=== PATIENT | male | born 1945 | race Caucasian/White ===

== ENCOUNTER → 2016-12-14 | Outpatient (CLI) | payer OTHER, MEDICARE ==
[~2016-12-14] MED LIST: AMLO10TA2 PO; ASPI-621 PO; ATOR80TA75 PO; CARB1TAB48 PO; CARV3.122 PO; CLOP75TA PO; FISH1CAP PO; FURO-92 PO; FURO20TA3 PO; HYDR-3144 PO; ISOS10TA2 PO; LOSA100T6 PO; LOVA40TA2 PO; METF10002 PO; PARO20TA4 PO; POTA10TA11 PO; POTA20TA14 PO; SPIR25TA PO
== END | disposition home or self-care (01) ==
LOC: CFH 11:36
PROVIDERS: ATTEND Internal Medicine Critical Care Medicine
DX: J90 Pleural effusion, not elsewhere classified (principal); I51.7 Cardiomegaly; I25.10 Atherosclerotic heart disease of native coronary artery without angina pectoris
CPT/HCPCS: 71250

== ENCOUNTER → 2017-09-19 | Outpatient (CLI) | payer OTHER ==
[~2017-09-19] MED LIST changes: +ATOR-2 PO; -ATOR80TA75 PO; -HYDR-3144 PO; +HYDR-3245 PO
== END ==
LOC: CVU 12:16
PROVIDERS: ATTEND Internal Medicine Cardiovascular Disease
DX: I35.0 Nonrheumatic aortic (valve) stenosis (principal); I27.20 Pulmonary hypertension, unspecified; I42.9 Cardiomyopathy, unspecified; I50.9 Heart failure, unspecified; I07.1 Rheumatic tricuspid insufficiency
CPT/HCPCS: C8929

== ENCOUNTER 2017-12-10 06:13 | Inpatient (IN) | payer OTHER ==
[~2017-12-10] VITALS: Ht 182.9 cm; Wt 85.6 kg
[~2017-12-10 06:13] MED LIST changes: +ACID1TAB7 PO; +CARB1TAB25 PO; +CARV3.1212 PO; +FURO40TA6 PO; +GABA-826 PO; +GABA300C10 PO; +HEPA50002 SQ; +ISOS20TA58 PO; +METF500T PO; +METO10TA6 PO; +POTA20PA25 PO
[2017-12-10] MEDS ORDERED: SODIUM CHLORIDE 0.9% 1,000 ML IV ONE (06:34)
[2017-12-10 06:37] VITALS: BP 130/81
[2017-12-10] MEDS ORDERED: FENTANYL PF 250 MCG/5ML ONE (06:55)
[2017-12-10] MEDS ORDERED: CHLORHEXIDINE 15 ML BOTTLE MM PRN (07:00)
[2017-12-10] MEDS ORDERED: ONDANSETRON 2MG/ML, 2ML IVPush PRN (07:00)
[2017-12-10] MEDS ORDERED: METF-688 PO (07:01)
[2017-12-10 07:14] LABS: BASOPHILS # (AUTO) 0.03 x10^3/uL (0-0.1); BASOPHILS % (AUTO) 0 % (0-1); EOSINOPHILS # (AUTO) 0.09 x10^3/uL (0-0.4); EOSINOPHILS % (AUTO) 1 % (1-7); LYMPHOCYTES # (AUTO) 0.64 x10^3/uL (1-3.4); LYMPHOCYTES % (AUTO) 8 % (22-44); MD NO; MEAN CORPUSCULAR HEMOGLOBIN 31.9 pg (27.5-34.5); MEAN CORPUSCULAR HGB CONC 33.4 g/dL (33.2-36.2); MEAN CORPUSCULAR VOLUME 95.4 fL (81-97); MEAN PLATELET VOLUME 7.2 fL (7.4-10.4); MONOCYTES # (AUTO) 0.74 x10^3/uL (0.2-0.8); MONOCYTES % (AUTO) 9 % (2-9); NEUTROPHILS # (AUTO) 6.79 x10^3/uL (1.8-6.8); NEUTROPHILS % (AUTO) 82 % (42-75); PLATELET COUNT 333 x10^3/uL (130-400); RED BLOOD COUNT 3.45 x10^6/uL (4.38-5.82); RED CELL DISTRIBUTION WIDTH 21.6 % (9.4-14.8)
[2017-12-10 07:25] LABS: ALANINE AMINOTRANSFERASE 10 U/L (12-78); ANION GAP 5 mmol/L (5-15); CALCIUM 8.6 mg/dL (8.5-10.1); CHLORIDE 111 mmol/L (98-107); CREATININE 1.01 mg/dL (0.7-1.3)
[2017-12-10 07:30] LABS: ALKALINE PHOSPHATASE 104 U/L (45-117); BILIRUBIN,TOTAL 0.7 mg/dL (0.2-1.0); TOTAL PROTEIN 6.8 g/dL (6.4-8.2)
[2017-12-10 07:31] LABS: INTERNATIONAL NORMALIZED RATIO 0.98 (0.93-1.1); PROTHROMBIN TIME 10.2 Seconds (9.6-11.5)
[2017-12-10] MEDS ORDERED: CEFAZOLIN 1,000 MG ONE (07:55)
[2017-12-10] MEDS ORDERED: PROTAMINE SULFATE 10 MG/ML, 5ML ONE (09:29)
[2017-12-10] MEDS ORDERED: SODIUM CHLORIDE 0.9% 1,000 ML IV SCH (09:42)
[2017-12-10] MEDS ORDERED: SUCCINYLCHOLINE 20 MG/ML, 10ML ONE (09:57)
[2017-12-10] MEDS ORDERED: DEXAMETHASONE 4 MG/ML, 1ML ONE (09:57)
[2017-12-10] MEDS ORDERED: ROCURONIUM 10 MG/ML,10ML ONE (09:57)
[2017-12-10] MEDS ORDERED: PROPOFOL 10 MG/ML, 20ML ONE (09:57)
[2017-12-10] MEDS ORDERED: GLUCAGON 1 MG IM PRN (10:00)
[2017-12-10] MEDS ORDERED: DEXTROSE 50%, 50ML SYRINGE IVPush PRN (10:00)
[2017-12-10] MEDS ORDERED: DEXTROSE 4 GM TAB.CHEW PO PRN (10:00)
[2017-12-10] MEDS: ASPIRIN 81 MG TABLET EC PO SCH (10:51)
[2017-12-10] MEDS: CARVEDILOL 3.125 MG TABLET PO SCH ×2 (10:52→20:57)
[2017-12-10] MEDS: CARBIDOPA/LEVODOPA 25 MG/250 MG TABLET PO SCH (17:52)
[2017-12-10] MEDS: SODIUM CHLORIDE FLUSH 10ML SYR IVF SCH (20:57)
[2017-12-10] MEDS ORDERED: ASPIRIN 81 MG TABLET EC PO SCH (21:00)
[2017-12-10] MEDS ORDERED: GABAPENTIN 100 MG CAPSULE PO SCH (21:00)
[2017-12-10] MEDS ORDERED: CLOPIDOGREL 300 MG TABLET PO ONE (21:00)
[2017-12-10] MEDS ORDERED: PAROXETINE 20 MG TABLET PO SCH (21:00)
[2017-12-10] MEDS ORDERED: LOVASTATIN 40 MG TABLET PO SCH (21:00)
[2017-12-10 21:05] VITALS: BP 117/70
[2017-12-10 21:16] VITALS: BP 118/72
[2017-12-11 03:00] VITALS: BP 139/86
[2017-12-11 06:07] LABS: BASOPHILS % (AUTO) 0 % (0-1); EOSINOPHILS # (AUTO) 0.08 x10^3/uL (0-0.4); EOSINOPHILS % (AUTO) 1 % (1-7); LYMPHOCYTES # (AUTO) 1.04 x10^3/uL (1-3.4); LYMPHOCYTES % (AUTO) 12 % (22-44); MD NO; MEAN CORPUSCULAR HEMOGLOBIN 32.2 pg (27.5-34.5); MEAN CORPUSCULAR HGB CONC 33.8 g/dL (33.2-36.2); MEAN CORPUSCULAR VOLUME 95.4 fL (81-97); MEAN PLATELET VOLUME 7.3 fL (7.4-10.4); MONOCYTES # (AUTO) 0.85 x10^3/uL (0.2-0.8); MONOCYTES % (AUTO) 10 % (2-9); NEUTROPHILS # (AUTO) 6.75 x10^3/uL (1.8-6.8); NEUTROPHILS % (AUTO) 77 % (42-75); PLATELET COUNT 300 x10^3/uL (130-400); RED BLOOD COUNT 3.19 x10^6/uL (4.38-5.82); RED CELL DISTRIBUTION WIDTH 21.3 % (9.4-14.8)
[2017-12-11 06:20] LABS: ALBUMIN 2.7 g/dL (3.4-5.0); ANION GAP 6 mmol/L (5-15); CALCIUM 8.4 mg/dL (8.5-10.1); CHLORIDE 111 mmol/L (98-107)
[2017-12-11 06:21] LABS: CREATININE 0.89 mg/dL (0.7-1.3)
[2017-12-11 07:28] VITALS: BP 131/80
[2017-12-11] MEDS: ASPIRIN 81 MG TABLET EC PO SCH (08:14)
[2017-12-11] MEDS: CARVEDILOL 3.125 MG TABLET PO SCH (08:15)
[2017-12-11] MEDS: SODIUM CHLORIDE FLUSH 10ML SYR IVF SCH (08:15)
[2017-12-11] MEDS: CARBIDOPA/LEVODOPA 25 MG/250 MG TABLET PO SCH ×2 (08:16→12:08)
[2017-12-11] MEDS ORDERED: SPIRONOLACTONE 25 MG TABLET PO SCH (09:00)
[2017-12-11] MEDS ORDERED: CLOPIDOGREL 75 MG TABLET PO SCH (09:00)
[2017-12-11] MEDS ORDERED: IRBE75TA31 PO (11:05)
[2017-12-11] MEDS ORDERED: CLOP75TA PO (13:03)
[2017-12-12] MEDS ORDERED: CLOPIDOGREL 75 MG TABLET PO SCH (09:00)
== END 2017-12-11 13:41 | disposition home or self-care (01) | DRG 266 ==
LOC: ORIP 06:13 → CSU 09:41 → 5SO 18:25
PROVIDERS: ADMIT Internal Medicine Cardiovascular Disease; ATTEND Internal Medicine Cardiovascular Disease
PROC: B246ZZ4 Ultrasonography of Right and Left Heart, Transesophageal (ICD-10-PCS; 2017-12-10)
PROC: 5A1223Z Performance of Cardiac Pacing, Continuous (ICD-10-PCS; 2017-12-10)
PROC: 02RF38Z Replacement of Aortic Valve with Zooplastic Tissue, Percutaneous Approach (ICD-10-PCS; principal; 2017-12-10 08:00)
DX: I35.0 Nonrheumatic aortic (valve) stenosis (principal); Z00.6 Encounter for examination for normal comparison and control in clinical research program; I50.43 Acute on chronic combined systolic (congestive) and diastolic (congestive) heart failure; I42.0 Dilated cardiomyopathy; G20 Parkinson's disease; I25.5 Ischemic cardiomyopathy; E78.5 Hyperlipidemia, unspecified; I34.0 Nonrheumatic mitral (valve) insufficiency; I44.7 Left bundle-branch block, unspecified; E11.9 Type 2 diabetes mellitus without complications; Z95.1 Presence of aortocoronary bypass graft; Z88.8 Allergy status to other drugs, medicaments and biological substances; Z95.810 Presence of automatic (implantable) cardiac defibrillator
CPT/HCPCS: 33361; 36415; 80048; 80053; 82040; 83880; 85025; 85347; 85610; 85730; 86850; 86900; 86923; 87081; 92986; 93306; 93312; 93321; 93325; 93355; C1760; C1769; C1894; J0690; J1100; J2704; J2720; J3010; J0330; J7030; Q9967

== ENCOUNTER → 2018-01-07 | Outpatient (CLI) | payer OTHER ==
[~2018-01-07] MED LIST changes: +IRBE75TA31 PO; +METF-688 PO
== END | disposition home or self-care (01) ==
LOC: CVU 08:50
PROVIDERS: ATTEND Internal Medicine Cardiovascular Disease
DX: I34.0 Nonrheumatic mitral (valve) insufficiency (principal)
CPT/HCPCS: 93306

== ENCOUNTER 2018-04-26 20:37 | Inpatient (IN) | payer OTHER ==
[~2018-04-26] VITALS: Ht 182.9 cm; Wt 92.3 kg
[~2018-04-26 20:37] MED LIST changes: -AMLO10TA2 PO; +AMLO10TA6 PO; -LOSA100T6 PO; +LOSA100T7 PO
[2018-04-26] MEDS ORDERED: PROPARACAINE OPHTH 0.5%, 15ML ONE (20:58)
[2018-04-26 21:18] LABS: BASOPHILS # (AUTO) 0.02 x10^3/uL (0-0.1); BASOPHILS % (AUTO) 0 % (0-1); EOSINOPHILS # (AUTO) 0.27 x10^3/uL (0-0.4); EOSINOPHILS % (AUTO) 4 % (1-7); LYMPHOCYTES # (AUTO) 0.87 x10^3/uL (1-3.4); LYMPHOCYTES % (AUTO) 12 % (22-44); MD NO; MEAN CORPUSCULAR HEMOGLOBIN 31.8 pg (27.5-34.5); MEAN CORPUSCULAR HGB CONC 33.3 g/dL (33.2-36.2); MEAN CORPUSCULAR VOLUME 95.4 fL (81-97); MEAN PLATELET VOLUME 7.7 fL (7.4-10.4); MONOCYTES % (AUTO) 7 % (2-9); NEUTROPHILS # (AUTO) 5.85 x10^3/uL (1.8-6.8); NEUTROPHILS % (AUTO) 78 % (42-75); PLATELET COUNT 214 x10^3/uL (130-400); RED BLOOD COUNT 3.77 x10^6/uL (4.38-5.82); RED CELL DISTRIBUTION WIDTH 14.9 % (9.4-14.8)
[2018-04-26] MEDS ORDERED: LIDOCAINE-MPF 2%, 2ML ONE (21:27)
[2018-04-26 21:30] LABS: ALBUMIN 3.5 g/dL (3.4-5.0); ANION GAP 10 mmol/L (5-15); CHLORIDE 110 mmol/L (98-107); CREATININE 1.08 mg/dL (0.7-1.3); INTERNATIONAL NORMALIZED RATIO 1.01 (0.93-1.1); PROTHROMBIN TIME 10.5 Seconds (9.6-11.5)
[2018-04-26] MEDS ORDERED: LIDOCAINE 2%, 10ML INFIL ONE (21:30)
[2018-04-26] MEDS ORDERED: SODIUM CHLORIDE FLUSH 10ML SYR IVF ONE (21:30)
[2018-04-26 21:34] LABS: TROPONIN I < 0.015 ng/mL (0.000-0.045)
[2018-04-26] MEDS ORDERED: OMNIPAQUE 350 MG/ML, 100ML BOTTLE ONE (22:15)
[2018-04-26] MEDS ORDERED: BACITRACIN ZINC OINT 500U/GM, 0.9 GM ONE (22:25)
[2018-04-26] MEDS ORDERED: morphine SULFATE 10 MG/ML, 1ML IVPush PRN (23:00)
[2018-04-26] MEDS ORDERED: ACETAMINOPHEN 325 MG TABLET PO PRN (23:00)
[2018-04-26] MEDS ORDERED: ONDANSETRON 2MG/ML, 2ML IVPush PRN (23:00)
[2018-04-26] MEDS ORDERED: LABETALOL 5MG/ML, 20ML IVPush PRN (23:00)
[2018-04-27] MEDS: CARVEDILOL 3.125 MG TABLET PO SCH ×3 (00:30→21:23)
[2018-04-27 03:34] LABS: BASOPHILS # (AUTO) 0.01 x10^3/uL (0-0.1); BASOPHILS % (AUTO) 0 % (0-1); EOSINOPHILS # (AUTO) 0.09 x10^3/uL (0-0.4); EOSINOPHILS % (AUTO) 1 % (1-7); LYMPHOCYTES # (AUTO) 0.74 x10^3/uL (1-3.4); LYMPHOCYTES % (AUTO) 8 % (22-44); MD NO; MEAN CORPUSCULAR HEMOGLOBIN 31.4 pg (27.5-34.5); MEAN CORPUSCULAR HGB CONC 33.1 g/dL (33.2-36.2); MEAN CORPUSCULAR VOLUME 94.8 fL (81-97); MEAN PLATELET VOLUME 8.1 fL (7.4-10.4); MONOCYTES # (AUTO) 0.67 x10^3/uL (0.2-0.8); MONOCYTES % (AUTO) 7 % (2-9); NEUTROPHILS # (AUTO) 8.17 x10^3/uL (1.8-6.8); NEUTROPHILS % (AUTO) 84 % (42-75); PLATELET COUNT 227 x10^3/uL (130-400)
[2018-04-27 03:46] LABS: ANION GAP 9 mmol/L (5-15); CALCIUM 8.6 mg/dL (8.5-10.1); CHLORIDE 109 mmol/L (98-107)
[2018-04-27 03:47] LABS: CREATININE 0.92 mg/dL (0.7-1.3)
[2018-04-27 03:54] LABS: TROPONIN I 0.024 ng/mL (0.000-0.045)
[2018-04-27 04:49] VITALS: BP 155/85
[2018-04-27] MEDS: INSULIN LISPRO 100 UNITS/ML, PEN SQ-INSULIN SCH ×4 (06:46→21:00)
[2018-04-27] MEDS: SODIUM CHLORIDE 0.9% 1,000 ML IV SCH ×2 (06:50→20:32)
[2018-04-27] MEDS: CARBIDOPA/LEVODOPA 25 MG/250 MG TABLET PO SCH ×3 (08:43→16:48)
[2018-04-27] MEDS: SPIRONOLACTONE 25 MG TABLET PO SCH (08:43)
[2018-04-27] MEDS: IRBESARTAN 150 MG TABLET PO SCH (08:44)
[2018-04-27] MEDS: PANTOPRAZOLE 40 MG IV IVPush SCH (08:45)
[2018-04-27 11:22] LABS: TROPONIN I < 0.015 ng/mL (0.000-0.045)
[2018-04-27 21:20] VITALS: BP 138/85
[2018-04-27] MEDS: LOVASTATIN 40 MG TABLET PO SCH (21:23)
[2018-04-27] MEDS: GABAPENTIN 100 MG CAPSULE PO SCH (21:23)
[2018-04-27] MEDS: PAROXETINE 20 MG TABLET PO SCH (21:23)
[2018-04-28 02:11] VITALS: BP 136/84
[2018-04-28 06:46] VITALS: BP 136/80
[2018-04-28] MEDS: INSULIN LISPRO 100 UNITS/ML, PEN SQ-INSULIN SCH ×4 (07:00→21:26)
[2018-04-28] MEDS: PANTOPRAZOLE 40 MG IV IVPush SCH (08:18)
[2018-04-28] MEDS: CARBIDOPA/LEVODOPA 25 MG/250 MG TABLET PO SCH ×3 (08:19→15:50)
[2018-04-28] MEDS: SPIRONOLACTONE 25 MG TABLET PO SCH (08:19)
[2018-04-28] MEDS: IRBESARTAN 150 MG TABLET PO SCH (08:19)
[2018-04-28] MEDS: CARVEDILOL 3.125 MG TABLET PO SCH ×2 (08:19→21:26)
[2018-04-28] MEDS: SODIUM CHLORIDE 0.9% 1,000 ML IV SCH (08:21)
[2018-04-28 13:36] VITALS: BP 129/74
[2018-04-28 21:16] VITALS: BP 128/77
[2018-04-28] MEDS: LOVASTATIN 40 MG TABLET PO SCH (21:26)
[2018-04-28] MEDS: PAROXETINE 20 MG TABLET PO SCH (21:26)
[2018-04-28] MEDS: GABAPENTIN 100 MG CAPSULE PO SCH (21:26)
[2018-04-29 05:24] VITALS: BP 150/92
[2018-04-29] MEDS: INSULIN LISPRO 100 UNITS/ML, PEN SQ-INSULIN SCH (07:00)
[2018-04-29 07:29] VITALS: BP 136/77
[2018-04-29] MEDS: PANTOPRAZOLE 40 MG IV IVPush SCH (08:26)
[2018-04-29] MEDS: CARVEDILOL 3.125 MG TABLET PO SCH (08:26)
[2018-04-29] MEDS: CARBIDOPA/LEVODOPA 25 MG/250 MG TABLET PO SCH (08:27)
[2018-04-29] MEDS: IRBESARTAN 150 MG TABLET PO SCH (08:27)
[2018-04-29] MEDS: SPIRONOLACTONE 25 MG TABLET PO SCH (08:27)
== END 2018-04-29 12:35 | disposition home health service (06) | DRG 86 ==
LOC: ED 21:37 → EDIP 22:25 → CCU 23:24 → 5SO 04-27 15:56 → DCLOUNGE 04-29 12:15
PROVIDERS: ADMIT Internal Medicine; ATTEND Family Medicine
PROC: 0JQ13ZZ Repair Face Subcutaneous Tissue and Fascia, Percutaneous Approach (ICD-10-PCS; principal; 2018-04-26)
DX: S06.6X1A Traumatic subarachnoid hemorrhage with loss of consciousness of 30 minutes or less, initial encounter (principal); I50.42 Chronic combined systolic (congestive) and diastolic (congestive) heart failure; G20 Parkinson's disease; S01.81XA Laceration without foreign body of other part of head, initial encounter; I25.5 Ischemic cardiomyopathy; R40.2411 Glasgow coma scale score 13-15, in the field [EMT or ambulance]; E78.5 Hyperlipidemia, unspecified; I11.0 Hypertensive heart disease with heart failure; I25.10 Atherosclerotic heart disease of native coronary artery without angina pectoris; Z95.1 Presence of aortocoronary bypass graft; M48.02 Spinal stenosis, cervical region; M50.31 Other cervical disc degeneration, high cervical region; W18.39XA Other fall on same level, initial encounter; Y93.89 Activity, other specified; Y92.89 Other specified places as the place of occurrence of the external cause; Z79.01 Long term (current) use of anticoagulants; Z79.02 Long term (current) use of antithrombotics/antiplatelets; Z95.2 Presence of prosthetic heart valve; Z95.810 Presence of automatic (implantable) cardiac defibrillator
CPT/HCPCS: 12052; 36415; 70450; 70486; 70496; 72125; 80048; 82040; 82962; 83735; 84100; 84484; 85025; 85610; 85730; 87081; 93005; 99291; G0378; Q9967; C9113; J1815; J7030

== ENCOUNTER → 2018-05-06 | Outpatient (CLI) | payer MEDICARE, OTHER | END | disposition home or self-care (01) | LOC: CFH 13:17 | PROVIDERS: ATTEND Specialist | DX: J32.0 Chronic maxillary sinusitis (principal); R90.82 White matter disease, unspecified; W19.XXXA Unspecified fall, initial encounter; Y93.89 Activity, other specified; Y92.89 Other specified places as the place of occurrence of the external cause; Y99.8 Other external cause status | CPT/HCPCS: 70450 ==

== ENCOUNTER → 2018-06-12 | Outpatient (CLI) | payer OTHER | END | disposition home or self-care (01) | LOC: CFH 13:21 | PROVIDERS: ATTEND Specialist | DX: I08.1 Rheumatic disorders of both mitral and tricuspid valves (principal); I10 Essential (primary) hypertension; E11.9 Type 2 diabetes mellitus without complications; G20 Parkinson's disease; Z95.1 Presence of aortocoronary bypass graft; Z95.2 Presence of prosthetic heart valve | CPT/HCPCS: 93306 ==

== ENCOUNTER → 2018-06-17 | Outpatient (CLI) | payer OTHER | END | disposition home or self-care (01) | LOC: CFH 10:37 | PROVIDERS: ATTEND Specialist | DX: I25.10 Atherosclerotic heart disease of native coronary artery without angina pectoris (principal); G20 Parkinson's disease | CPT/HCPCS: 93880 ==

== ENCOUNTER → 2018-12-15 | Outpatient (CLI) | payer MEDICARE ==
[~2018-12-15] MED LIST changes: -AMLO10TA6 PO; +AMLO10TA8 PO; -ASPI-621 PO; +ASPI81TA45 PO; +LOSA100T14 PO; -LOSA100T7 PO
== END | disposition home or self-care (01) ==
LOC: CVU 10:12
PROVIDERS: ATTEND Internal Medicine Cardiovascular Disease
DX: I08.0 Rheumatic disorders of both mitral and aortic valves (principal)
CPT/HCPCS: 0399T; 93306

== ENCOUNTER 2019-03-17 14:01 | Outpatient (CLI) | payer MEDICARE | END 2019-03-17 23:59 | disposition home or self-care (01) | LOC: CFH 14:01 | PROVIDERS: ATTEND Specialist | DX: I63.81 Other cerebral infarction due to occlusion or stenosis of small artery (principal); R90.82 White matter disease, unspecified; G20 Parkinson's disease | CPT/HCPCS: 70450 ==